=== PATIENT | female | born 1970 | race Caucasian/White ===

== ENCOUNTER 2021-12-04 14:06 | Emergency (ER) | payer SELFPAY ==
[~2021-12-04] VITALS: Ht 165.1 cm; Wt 62.1 kg
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
--- NOTE | 2021-12-04 14:21 | NUR ---
DR AVINA AT BEDSIDE
[2021-12-04] MEDS ORDERED: KETOROLAC TROMETHAMINE INJ 30 MG/ML VIAL ONE (14:56)
[2021-12-04] MEDS ORDERED: MORPHINE SULFATE INJ 2 MG/ML DISP.SYRIN ONE (14:56)
[2021-12-04] MEDS ORDERED: MORPHINE SULFATE INJ 2 MG/ML DISP.SYRIN IM ONE (15:00)
[2021-12-04] MEDS ORDERED: KETOROLAC TROMETHAMINE INJ 30 MG/ML VIAL IM ONE (15:00)
[2021-12-04] MEDS ORDERED: HYDROCODONE/APAP 5/325MG TABLET ONE (15:06)
--- NOTE | 2021-12-04 15:06 | NUR ---
SUSTAINABILITY SPECIALIST AT BEDSIDE
[2021-12-04] MEDS ORDERED: HYDROCODONE/APAP 5/325MG TABLET PO ONE (15:30)
[2021-12-04] MEDS ORDERED: HYDR-4209 PO (15:53)
--- NOTE | 2021-12-04 16:05 | NUR ---
Patient discharged to home in stable condition. Written and verbal after care instructions given. Patient verbalizes understanding of instruction.
[2021-12-04 16:06] VITALS: BP 124/87
== END 2021-12-04 16:07 | disposition home or self-care (01) ==
LOC: ER 14:11
DX: S89.81XA Other specified injuries of right lower leg, initial encounter (principal); M25.461 Effusion, right knee; W18.09XA Striking against other object with subsequent fall, initial encounter; Y93.89 Activity, other specified; Y92.89 Other specified places as the place of occurrence of the external cause; Y99.8 Other external cause status
CPT/HCPCS: 29505; 73564; 96372; 99283; J1885; J2270

== ENCOUNTER 2021-12-16 09:54 | Emergency (ER) | payer SELFPAY ==
[~2021-12-16] VITALS: Ht 162.6 cm; Wt 53.5 kg
[~2021-12-16 09:54] MED LIST: HYDR-4209 PO
--- NOTE | 2021-12-16 10:30 | NUR ---
BIB for c/o R knee pain w/ noted worsening discolaration x 7 days. Rates pain 10/10. Will continue to monitor the patient.
--- NOTE | 2021-12-16 11:46 | NUR ---
URINE SAMPLE OBTAINED AND SENT TO LAB
--- NOTE | 2021-12-16 13:21 | NUR ---
CALLED ORTHO DR. HAAS SPEAKING WITH GEORGE PEARL.
--- NOTE | 2021-12-16 14:01 | NUR ---
Patient discharged to home in stable condition. Written and verbal after care instructions given. Patient verbalizes understanding of instruction.
[2021-12-16 14:02] VITALS: BP 131/78
== END 2021-12-16 14:03 | disposition home or self-care (01) ==
LOC: ER 09:55
DX: S89.91XA Unspecified injury of right lower leg, initial encounter (principal); M54.16 Radiculopathy, lumbar region; X58.XXXA Exposure to other specified factors, initial encounter; Y93.89 Activity, other specified; Y92.89 Other specified places as the place of occurrence of the external cause; Y99.8 Other external cause status
CPT/HCPCS: 72131-TC; 84703-TC; 93971-TC